=== PATIENT | male | born 1960 | race Caucasian/White ===

== ENCOUNTER 2022-03-29 17:33 | Emergency (ER) | payer MEDICAID ==
[~2022-03-29] VITALS: Ht 182.9 cm; Wt 80.0 kg
[2022-03-29 18:50] VITALS: BP 165/113
[2022-03-30] MEDS ORDERED: IBUPROFEN 600MG TABLET PO STA (00:25)
[2022-03-30] MEDS ORDERED: FLUORESCEIN SODIUM 1MG/STRIP RIGHTEYE ONE (00:30)
[2022-03-30] MEDS ORDERED: TETRACAINE 0.5% OPHTH DROPS 4ML RIGHTEYE ONE (00:30)
[2022-03-30] MEDS ORDERED: BALANCED SALT IRRIG SOLN 15ML IR ONE (00:30)
== END 2022-03-30 00:56 | disposition left against medical advice (07) ==
LOC: ER 17:33
DX: S05.12XA Contusion of eyeball and orbital tissues, left eye, initial encounter (principal); W22.8XXA Striking against or struck by other objects, initial encounter; Y93.89 Activity, other specified; Y92.810 Car as the place of occurrence of the external cause
CPT/HCPCS: 99281